=== PATIENT | female | born 1985 | race Caucasian/White ===

== ENCOUNTER 2023-06-13 17:18 | Day surgery (SDC) | payer OTHER ==
[2023-06-13] MEDS ORDERED: hydrALAZINE 20 MG/ML VIAL SLOW IVP PRN (17:28)
[2023-06-13] MEDS ORDERED: fentaNYL 50 mcg/mL 1 mL Vial SLOW IVP PRN (19:41)
[2023-06-13] MEDS ORDERED: Lactated Ringer's 1,000 ML IV SCH (19:45)
== END 2023-06-14 00:45 | disposition home or self-care (01) ==
LOC: CSHLD/OP 17:18
PROVIDERS: ATTEND Student in an Organized Health Care Education/Training Program
DX: O47.03 False labor before 37 completed weeks of gestation, third trimester (principal); O98.813 Other maternal infectious and parasitic diseases complicating pregnancy, third trimester; B37.9 Candidiasis, unspecified; B96.89 Other specified bacterial agents as the cause of diseases classified elsewhere; Z79.899 Other long term (current) drug therapy; Z3A.36 36 weeks gestation of pregnancy
CPT/HCPCS: 87480; 87510; 87660; J3010

== ENCOUNTER 2023-06-17 21:15 | Day surgery (SDC) | payer OTHER ==
[2023-06-17 21:35] VITALS: BMI 25.2
[2023-06-17] MEDS ORDERED: hydrALAZINE 20 MG/ML VIAL SLOW IVP PRN (21:59)
[2023-06-17 22:12] LABS: Fetal Membranes Rupture No Membranes Rupture (No Rupture)
== END 2023-06-17 22:44 | disposition home or self-care (01) ==
LOC: CSHLD/OP 21:15
PROVIDERS: ATTEND Student in an Organized Health Care Education/Training Program
DX: Z03.71 Encounter for suspected problem with amniotic cavity and membrane ruled out (principal); O98.813 Other maternal infectious and parasitic diseases complicating pregnancy, third trimester; B37.31 Acute candidiasis of vulva and vagina; Z3A.36 36 weeks gestation of pregnancy
CPT/HCPCS: 84112

== ENCOUNTER 2023-07-07 06:05 | Inpatient (IN) | payer OTHER ==
[2023-07-07] MEDS ORDERED: Acetaminophen 500 MG TAB PO PRN (06:27)
[2023-07-07] MEDS ORDERED: Oxytocin 30 units/NS 500 ML 500 ML IV SCH ×2 (06:27)
[2023-07-07] MEDS ORDERED: fentaNYL 50 mcg/mL 1 mL Vial SLOW IVP PRN (06:27)
[2023-07-07] MEDS ORDERED: Ondansetron PF 4 MG/2 ML Vial IVP PRN ×3 (06:27→17:28)
[2023-07-07] MEDS ORDERED: hydrALAZINE 20 MG/ML VIAL SLOW IVP PRN ×2 (06:27→17:28)
[2023-07-07] MEDS ORDERED: Promethazine HCl 25 MG/ML VIAL IM PRN ×3 (06:27→17:28)
[2023-07-07] MEDS ORDERED: HYDROcodone/Acetaminophen 5/325 mg Tablet PO PRN ×3 (06:27→17:28)
[2023-07-07] MEDS ORDERED: Lidocaine 1% (PF) 30 ML VIAL SC PRN (06:27)
[2023-07-07] MEDS ORDERED: Ibuprofen 800 MG TAB PO PRN (06:27)
[2023-07-07] MEDS ORDERED: Lactated Ringer's 1,000 ML IV SCH (06:27)
[2023-07-07 06:41] VITALS: BMI 25.0
[2023-07-07 07:44] LABS: Hematocrit 31.7 % (34.9-44.5); Hemoglobin 10.8 g/dL (12.0-15.5); Mean Corpuscular HGB CONC 34.1 g/dL (32.0-36.0); Mean Corpuscular Hemoglobin 32.1 pg (27.0-33.0); Mean Corpuscular Volume 94.3 fl (81.6-98.3); Mean Platelet Volume 9.1 fl (7.4-10.4); Platelet Count 263 10x3/uL (150-450); RBC Distribution Width 14.6 % (11.5-14.5); Red Blood Cell (RBC) Count 3.36 10x6/uL (3.90-5.03); White Blood Cell (WBC) Count 8.6 10x3/uL (3.5-10.5)
[2023-07-07] MEDS ORDERED: fentaNYL/Ropivacaine Epidural 100 ML ONE (07:45)
[2023-07-07 08:12] LABS: Syphilis Antibody Nonreactive (Nonreactive); Syphilis Antibody Index 0.05 S/CO (<1.00 Non-Reactive)
[2023-07-07 08:13] LABS: HBSAg Index 0.15 S/CO (0-0.99); Hep B Surf Ag - L&D Non-Reactive S/CO (NonReactive)
[2023-07-07] MEDS ORDERED: Naloxone HCl 0.4 mg/ml Vial IVP PRN ×2 (09:36)
[2023-07-07] MEDS ORDERED: Lactated Ringer's 500 ML IV PRN (09:36)
[2023-07-07] MEDS ORDERED: Moisturizing Cream (Eucerin) 113 GM JAR TOP PRN (09:36)
[2023-07-07] MEDS ORDERED: ePHEDrine Sulfate 50 MG/10 ML VIAL SLOW IVP PRN (09:36)
[2023-07-07] MEDS ORDERED: Acetaminophen 325 MG TAB PO PRN (09:36)
[2023-07-07] MEDS ORDERED: diphenhydrAMINE 50 MG/ML VIAL IVP PRN (09:36)
[2023-07-07] MEDS ORDERED: fentaNYL 2 mcg/Ropivacaine 0.2% Epidural 100 ML CADD EPIDURAL SCH (09:45)
[2023-07-07] MEDS ORDERED: Communication Order-Pharmacy FS SCH (09:45)
[2023-07-07] MEDS ORDERED: Benzocaine-Menthol 82.5 ML CAN TOP PRN (17:28)
[2023-07-07] MEDS ORDERED: diphenhydrAMINE 25 MG CAP PO PRN (17:28)
[2023-07-07] MEDS ORDERED: Preparation H Ointment 28 GM TUBE PR PRN (17:28)
[2023-07-07] MEDS ORDERED: Lanolin Ointment 7 GM TUBE TOP PRN (17:28)
[2023-07-07] MEDS ORDERED: Boostrix 0.5 ML (Tdap) VIAL (>/=7 yrs of age) IM ONE (17:28)
[2023-07-07] MEDS ORDERED: Bisacodyl 10 MG SUPP PR PRN (17:28)
[2023-07-07] MEDS ORDERED: Milk Of Magnesia 30 ML UDCUP PO PRN (17:28)
[2023-07-07] MEDS ORDERED: Ferrous Sulfate 325 MG TAB PO SCH (17:45)
[2023-07-07] MEDS: Docusate 100 MG CAP PO SCH (22:07)
[2023-07-07] MEDS: Ibuprofen 800 MG TAB PO SCH (22:07)
[2023-07-08] MEDS: Ibuprofen 800 MG TAB PO SCH ×2 (05:40→14:16)
[2023-07-08] MEDS: Ferrous Sulfate 325 MG TAB PO SCH (07:12)
[2023-07-08] MEDS ORDERED: Witch Hazel-Glycerin 1 EACH JAR TOP PRN (07:53)
[2023-07-08] MEDS: Docusate 100 MG CAP PO SCH (08:12)
[2023-07-08] MEDS ORDERED: Prenatal Vitamin 1 TAB PO SCH (09:00)
[2023-07-08 12:54] VITALS: BP 103/63; TEMP 97.8
== END 2023-07-08 18:00 | disposition home or self-care (01) | DRG 807 ==
LOC: CSHLD 06:05 → CSHPED 17:55
PROVIDERS: ADMIT Student in an Organized Health Care Education/Training Program; ATTEND Student in an Organized Health Care Education/Training Program
PROC: 10E0XZZ Delivery of Products of Conception, External Approach (ICD-10-PCS; principal; 2023-07-07)
PROC: 0HQ9XZZ Repair Perineum Skin, External Approach (ICD-10-PCS; 2023-07-07)
PROC: 3E033XZ Introduction of Vasopressor into Peripheral Vein, Percutaneous Approach (ICD-10-PCS; 2023-07-07)
DX: O70.0 First degree perineal laceration during delivery (principal); Z37.0 Single live birth; Z3A.39 39 weeks gestation of pregnancy
CPT/HCPCS: 36415; 85027; 86780; 86850; 86900; 86901; 87340; J2405; J2590

== ENCOUNTER 2023-08-02 20:11 | Inpatient (IN) | payer OTHER ==
[~2023-08-02 20:11] MED LIST: Iopamidol 300 61% 100 ML VIAL FS ONE
[2023-08-02] MEDS ORDERED: methylPREDNISolone Sod Succ/PF 125 MG/2 ML VIAL ONE (20:48)
[2023-08-02] MEDS ORDERED: diphenhydrAMINE 50 MG/ML VIAL ONE (20:48)
[2023-08-02] MEDS ORDERED: Cefepime 2 GM VIAL ONE (20:48)
[2023-08-02] MEDS ORDERED: Famotidine/PF 20 mg/2ml Vial ONE (20:48)
[2023-08-02 21:00] LABS: Hematocrit 34.3 % (34.9-44.5); Hemoglobin 11.8 g/dL (12.0-15.5); Mean Corpuscular HGB CONC 34.4 g/dL (32.0-36.0); Mean Corpuscular Hemoglobin 30.6 pg (27.0-33.0); Mean Corpuscular Volume 88.9 fl (81.6-98.3); Mean Platelet Volume 9.5 fl (7.4-10.4); Platelet Count 121 10x3/uL (150-450); RBC Distribution Width 13.2 % (11.5-14.5); Red Blood Cell (RBC) Count 3.86 10x6/uL (3.90-5.03); White Blood Cell (WBC) Count 1.9 10x3/uL (3.5-10.5)
[2023-08-02] MEDS ORDERED: Acetaminophen 500 MG TAB ONE (21:08)
[2023-08-02 21:24] LABS: ALT (SGPT) 81 U/L (8-55); AST (SGOT) 145 U/L (5-34); Albumin 3.8 g/dL (3.5-5.0); Alkaline Phosphatase 97 U/L (40-110); Anion Gap 15 mmol/L (10-20); BUN (Urea Nitrogen) 17 mg/dL (7.0-18.7); Bilirubin, Total 0.2 mg/dL (0.2-1.2); Calc. Creatinine Clearance 0 mL/min (70-130); Calcium 8.3 mg/dL (7.8-10.44); Carbon Dioxide 18 mmol/L (22-29); Chloride 105 mmol/L (98-107); Estimated GFR 99; Globulin 2.7 g/dL (2.4-3.5); Glucose 107 mg/dL (70-105); Potassium 3.3 mmol/L (3.5-5.1); Protein, Total 6.5 g/dL (6.0-8.3); Sodium 135 mmol/L (136-145)
[2023-08-02 21:25] LABS: MDiff Complete? YES
[2023-08-02 21:47] LABS: Bilirubin Neg (Negative); Blood, Urine 25 (Negative); Clarity Clear (Clear); Glucose, Urine (Dipstick) Normal (Negative); Ketone, Urine 50 mg/dL (Negative); Leukocyte 100 (Negative); Nitrite Negative (Negative); Protein, Urine (Dipstick) 30 mg/dl (Neg-Trace); Urobilinogen Normal mg/dL (Less than 2)
[2023-08-02 21:50] LABS: Platelet Adequacy Comment Appears Decreased; RBC Morph Comment Within Normal Limits
[2023-08-02 21:54] LABS: CAUTI Indications for Culture Dysuria,urgency,freq; RBC/HPF 0-3 HPF (0-3); Squamous Epithelial 0-3 HPF (0-3); WBC/HPF 0-3 HPF (0-3)
[2023-08-02 21:55] LABS: Bacteria/HPF Rare-Few HPF (None Seen); Urine Culture Reflex No No
[2023-08-02 22:04] LABS: Band 12 % (5-11); Eosinophils 11 % (0-10); Lymphocytes 22 % (21-51); Metamyelocyte 2 % (0-0); Monocytes 5 % (0-10); Neutrophil 44 % (42-75); Other Cell Types 2; Reactive Lymphocytes 2 % (0-10)
[2023-08-02 22:25] LABS: SARS-CoV-2 NAA Rapid Test Not Detected (NotDetected)
[2023-08-02] MEDS ORDERED: Ondansetron PF 4 MG/2 ML Vial IVP PRN (23:53)
[2023-08-02] MEDS ORDERED: Senokot S 8.6-50 MG TAB PO PRN (23:53)
[2023-08-02] MEDS ORDERED: Calcium Carbonate 500 MG ChewTAB PO PRN (23:53)
[2023-08-02] MEDS ORDERED: Vancomycin 1 GM VIAL ONE (23:54)
[2023-08-03] MEDS ORDERED: HYDROcodone/Acetaminophen 5/325 mg Tablet PO PRN (00:03)
[2023-08-03] MEDS ORDERED: Clindamycin/D5W 900 MG in Premix 1 BAG IVPB SCH (00:15)
[2023-08-03 01:02] LABS: MONO NEGATIVE CONTROL ZONE White (Negative) (White); MONO POSITIVE CONTROL Pink Line (Positive) (PINK/RED); Mononucleosis NEGATIVE (NEGATIVE)
[2023-08-03 01:14] VITALS: BMI 24.7
[2023-08-03] MEDS: Lactated Ringer's 1,000 ML IV SCH ×3 (01:25→17:38)
[2023-08-03 01:27] LABS: HIV (1/2) Antibody/Antigen Non-Reactive (NonReactive); HIV 1/2 INDEX 0.08 S/CO (<1.00)
[2023-08-03] MEDS ORDERED: Potassium Chloride 20 MEQ TAB PO SCH (01:30)
[2023-08-03 01:31] LABS: D-Dimer Test 12.34 mg/L FEU (0.19-0.50); INR-International Normal Ratio 1.1; PTT 35.4 sec (22.0-33.0)
[2023-08-03] MEDS ORDERED: Meropenem 1 GM in Sodium Chloride 0.9% 100 ML IVPB SCH ×3 (02:00→10:00)
[2023-08-03] MEDS: diphenhydrAMINE 50 MG/ML VIAL IVP SCH ×4 (03:37→20:00)
[2023-08-03 04:17] LABS: ALT (SGPT) 87 U/L (8-55); AST (SGOT) 154 U/L (5-34); Albumin 3.3 g/dL (3.5-5.0); Alkaline Phosphatase 104 U/L (40-110); Anion Gap 14 mmol/L (10-20); BUN (Urea Nitrogen) 10 mg/dL (7.0-18.7); Bilirubin, Total 0.2 mg/dL (0.2-1.2); Calc. Creatinine Clearance 129 mL/min (70-130); Calcium 7.5 mg/dL (7.8-10.44); Carbon Dioxide 16 mmol/L (22-29); Chloride 109 mmol/L (98-107); Estimated GFR 117; Globulin 2.3 g/dL (2.4-3.5); Glucose 146 mg/dL (70-105); Hematocrit 30.9 % (34.9-44.5); Hemoglobin 10.6 g/dL (12.0-15.5); Mean Corpuscular HGB CONC 34.3 g/dL (32.0-36.0); Mean Corpuscular Hemoglobin 30.9 pg (27.0-33.0); Mean Corpuscular Volume 90.1 fl (81.6-98.3); Mean Platelet Volume 9.7 fl (7.4-10.4); Platelet Count 112 10x3/uL (150-450); Potassium 3.7 mmol/L (3.5-5.1); Protein, Total 5.6 g/dL (6.0-8.3); RBC Distribution Width 13.3 % (11.5-14.5); Red Blood Cell (RBC) Count 3.43 10x6/uL (3.90-5.03); Sodium 135 mmol/L (136-145); White Blood Cell (WBC) Count 1.3 10x3/uL (3.5-10.5)
[2023-08-03 04:26] LABS: MDiff Complete? YES
[2023-08-03 04:47] LABS: Platelet Adequacy Comment Appears Decreased; RBC Morph Comment Within Normal Limits
[2023-08-03 04:51] LABS: Band 14 % (5-11); Eosinophils 3 % (0-10); Lymphocytes 22 % (21-51); Metamyelocyte 2 % (0-0); Monocytes 3 % (0-10); Neutrophil 55 % (42-75); Other Cell Types 1
[2023-08-03] MEDS: Vancomycin 1 GM in Sodium Chloride 0.9% 250 ML 250 ML IVPB SCH ×2 (08:04→22:00)
[2023-08-03] MEDS: Loratadine 10 MG TAB PO SCH (08:04)
[2023-08-03] MEDS: Polyethylene Glycol 3350 17 GM Packet PO SCH (08:04)
[2023-08-03] MEDS: Multivitamin W/ Minerals 1 TAB PO SCH (08:04)
[2023-08-03] MEDS: Docusate 100 MG CAP PO SCH ×2 (08:04→22:00)
[2023-08-03] MEDS: Acetaminophen 325 MG TAB PO PRN ×2 (08:15→22:18)
[2023-08-03] MEDS ORDERED: guaiFENesin/Codeine Phosphate 100 mg/10 mg 5 ml UD Cup PO PRN (10:11)
[2023-08-03 14:34] LABS: HBCM Index 0.12 S/CO (0-0.79); HBSAg Index 0.21 S/CO (0-0.99); Hep A IgM AB Non-Reactive S/CO (NonReactive); Hep A IgM S/CO 0.13 S/CO (0-0.79); Hep B Surf Ag Non-Reactive S/CO (NonReactive); Hep C IgG Ab Non-Reactive S/CO (NonReactive); Hep C Index 0.11 S/CO (0-0.79); Hepatitis B Core IgM Abs Non-Reactive S/CO (NonReactive)
[2023-08-03] MEDS: Hydrocortisone 1% Cream 30 GM TUBE TOP SCH ×2 (15:41→22:00)
[2023-08-03] MEDS ORDERED: diphenhydrAMINE 50 MG/ML VIAL IVP SCH (22:15)
[2023-08-04] MEDS: Lactated Ringer's 1,000 ML IV SCH ×3 (00:40→09:34)
[2023-08-04 00:57] LABS: Chlam.trachomatis by PCR,Urine Not Detected (NotDetected); GC N.gonorrhoeae PCR,UrineVOID Not Detected (NotDetected)
[2023-08-04 04:09] LABS: Hematocrit 28.8 % (34.9-44.5); Mean Corpuscular HGB CONC 34.7 g/dL (32.0-36.0); Mean Corpuscular Hemoglobin 31.3 pg (27.0-33.0); Mean Platelet Volume 9.4 fl (7.4-10.4); Platelet Count 120 10x3/uL (150-450); RBC Distribution Width 13.2 % (11.5-14.5); White Blood Cell (WBC) Count 1.6 10x3/uL (3.5-10.5)
[2023-08-04 04:13] LABS: ALT (SGPT) 109 U/L (8-55); AST (SGOT) 168 U/L (5-34); Alkaline Phosphatase 99 U/L (40-110); Anion Gap 12 mmol/L (10-20); BUN (Urea Nitrogen) 7 mg/dL (7.0-18.7); Bilirubin, Total 0.3 mg/dL (0.2-1.2); CRP (Inflammatory) 4.87 mg/dL (= or < 0.5); Calc. Creatinine Clearance 140 mL/min (70-130); Calcium 7.9 mg/dL (7.8-10.44); Carbon Dioxide 22 mmol/L (22-29); Chloride 109 mmol/L (98-107); Estimated GFR 119; Globulin 2.1 g/dL (2.4-3.5); Glucose 99 mg/dL (70-105); Potassium 3.7 mmol/L (3.5-5.1); Protein, Total 5.1 g/dL (6.0-8.3); Sodium 139 mmol/L (136-145)
[2023-08-04 04:22] LABS: D-Dimer Test 7.62 mg/L FEU (0.19-0.50); INR-International Normal Ratio 1.1; PTT 30.8 sec (22.0-33.0); Prothrombin Time 11.8 sec (9.5-12.1)
[2023-08-04 04:25] LABS: MDiff Complete? YES
[2023-08-04 04:29] LABS: Platelet Adequacy Comment Appears Decreased
[2023-08-04 04:31] LABS: RBC Morph Comment Within Normal Limits
[2023-08-04 04:35] LABS: Band 12 % (5-11); Eosinophils 3 % (0-10); Lymphocytes 41 % (21-51); Metamyelocyte 2 % (0-0); Monocytes 5 % (0-10); Myelocyte 1 % (0-0); Neutrophil 35 % (42-75); Other Cell Types 1
[2023-08-04] MEDS: LevoFLOXacin 750 mg/D5W 750 MG in Premix 1 BAG IVPB SCH (08:24)
[2023-08-04] MEDS: Loratadine 10 MG TAB PO SCH (08:40)
[2023-08-04] MEDS: Hydrocortisone 1% Cream 30 GM TUBE TOP SCH ×4 (08:40→21:21)
[2023-08-04] MEDS: Docusate 100 MG CAP PO SCH ×2 (08:40→20:57)
[2023-08-04] MEDS: Multivitamin W/ Minerals 1 TAB PO SCH (08:40)
[2023-08-04] MEDS: Polyethylene Glycol 3350 17 GM Packet PO SCH (08:42)
[2023-08-04 09:21] LABS: Vancomycin, Trough 6.8 ug/mL
[2023-08-04] MEDS: Vancomycin 1 GM in Sodium Chloride 0.9% 250 ML 250 ML IVPB SCH ×4 (09:34→20:59)
[2023-08-05 05:51] LABS: Hematocrit 29.9 % (34.9-44.5); Hemoglobin 10.3 g/dL (12.0-15.5); Mean Corpuscular HGB CONC 34.4 g/dL (32.0-36.0); Mean Corpuscular Hemoglobin 31.4 pg (27.0-33.0); Mean Corpuscular Volume 91.2 fl (81.6-98.3); Mean Platelet Volume 9.4 fl (7.4-10.4); Platelet Count 140 10x3/uL (150-450); RBC Distribution Width 13.2 % (11.5-14.5); Red Blood Cell (RBC) Count 3.28 10x6/uL (3.90-5.03); White Blood Cell (WBC) Count 2.4 10x3/uL (3.5-10.5)
[2023-08-05 06:01] LABS: Anion Gap 11 mmol/L (10-20); BUN (Urea Nitrogen) 7 mg/dL (7.0-18.7); Calc. Creatinine Clearance 155 mL/min (70-130); Calcium 8.1 mg/dL (7.8-10.44); Carbon Dioxide 25 mmol/L (22-29); Chloride 107 mmol/L (98-107); Estimated GFR 122; Glucose 90 mg/dL (70-105); Potassium 3.6 mmol/L (3.5-5.1); Sodium 139 mmol/L (136-145)
[2023-08-05 06:04] LABS: MDiff Complete? YES
[2023-08-05 06:22] LABS: Platelet Adequacy Comment Appears Decreased; RBC Morph Comment Within Normal Limits
[2023-08-05 06:24] LABS: Band 8 % (5-11); Eosinophils 7 % (0-10); Lymphocytes 54 % (21-51); Monocytes 11 % (0-10); Neutrophil 18 % (42-75); Reactive Lymphocytes 2 % (0-10)
[2023-08-05] MEDS: Vancomycin 1 GM in Sodium Chloride 0.9% 250 ML 250 ML IVPB SCH (06:37)
[2023-08-05] MEDS: Lactated Ringer's 1,000 ML IV SCH (06:37)
[2023-08-05] MEDS: Hydrocortisone 1% Cream 30 GM TUBE TOP SCH (09:07)
[2023-08-05] MEDS: LevoFLOXacin 750 mg/D5W 750 MG in Premix 1 BAG IVPB SCH (09:09)
[2023-08-05] MEDS: Polyethylene Glycol 3350 17 GM Packet PO SCH (09:10)
[2023-08-05] MEDS: Multivitamin W/ Minerals 1 TAB PO SCH (09:10)
[2023-08-05] MEDS: Loratadine 10 MG TAB PO SCH (09:10)
[2023-08-05] MEDS: Docusate 100 MG CAP PO SCH (09:11)
[2023-08-05 10:44] VITALS: BP 104/72; TEMP 97.7
[2023-08-05 13:12] LABS: HIV-1 Quantitative, RNA PCR <20 copies/mL (.)
== END 2023-08-05 11:14 | disposition home or self-care (01) | DRG 776 ==
LOC: CSHERS 20:11 → CSHICU 23:53 → CSHTELE 08-04 14:15
PROVIDERS: ADMIT Student in an Organized Health Care Education/Training Program; ATTEND Internal Medicine
DX: O85 Puerperal sepsis (principal); O99.13 Other diseases of the blood and blood-forming organs and certain disorders involving the immune mechanism complicating the puerperium; D61.818 Other pancytopenia; R21 Rash and other nonspecific skin eruption; O90.89 Other complications of the puerperium, not elsewhere classified; D70.9 Neutropenia, unspecified; T78.40XA Allergy, unspecified, initial encounter; R74.01 Elevation of levels of liver transaminase levels; O99.285 Endocrine, nutritional and metabolic diseases complicating the puerperium; E87.6 Hypokalemia
CPT/HCPCS: 36415; 71045; 74177; 76705; 80048; 80053; 80074; 80202; 81001; 82607; 83010; 83605; 83615; 84145; 84443; 85025; 85046; 85049; 85060; 85300; 85362; 85379; 85384; 85610; 85730; 86140; 86308; 86880; 87040; 87086; 87389; 87491; 87536; 87591; 87798; 93005; J0692; J1200; J1650; J1956; J2185; J2930; J3370; J3490; J7050; J7120; Q9967; S0028